=== PATIENT | female | born 1985 | race African-American/Black ===

== ENCOUNTER 2024-07-26 23:31 | Inpatient (IN) | payer BC, SELFPAY ==
[2024-07-27] MEDS ORDERED: Acetaminophen 650 MG Suppository PR PRN (00:40)
[2024-07-27] MEDS ORDERED: Ondansetron PF 4 MG/2 ML Vial IVP PRN (00:40)
[2024-07-27] MEDS ORDERED: Ondansetron ODT 4 MG TAB PO PRN (00:40)
[2024-07-27] MEDS ORDERED: Calcium Carbonate 500 MG ChewTAB PO PRN (00:40)
[2024-07-27] MEDS ORDERED: Albuterol 200 PUFF INH INH PRN (00:42)
[2024-07-27] MEDS ORDERED: Lorazepam 1 MG TAB PO PRN (00:44)
[2024-07-27] MEDS ORDERED: Nicotine 14 MG PATCH TD PRN (00:50)
[2024-07-27] MEDS: Acetaminophen 325 MG TAB PO PRN (01:27)
[2024-07-27 01:39] VITALS: BMI 54.0
[2024-07-27] MEDS: Ipratropium/Albuterol 3 ML NEB NEB SCH (01:40)
[2024-07-27] MEDS: Levothyroxine Sodium 100 MCG TAB PO SCH (05:31)
[2024-07-27 06:22] LABS: Anion Gap 14 mmol/L (10-20); BUN (Urea Nitrogen) 12 mg/dL (7.0-18.7); Calc. Creatinine Clearance 194 mL/min (70-130); Calcium 8.9 mg/dL (7.8-10.44); Carbon Dioxide 21 mmol/L (22-29); Chloride 107 mmol/L (98-107); Estimated GFR 86; Glucose 183 mg/dL (70-105); Potassium 4.5 mmol/L (3.5-5.1); Sodium 137 mmol/L (136-145)
[2024-07-27 06:24] LABS: #Basophils Less than 0.03 10x3/uL (0.0-0.2); #Eosinophils Less than 0.03 10x3/uL (0.0-0.7); %Lymphocytes 7.3 % (21.0-51.0); %Monocytes 5.3 % (0.0-10.0); %Neutrophils 86.8 % (42.0-75.0); Hemoglobin 11.4 g/dL (12.0-16.0); Mean Corpuscular Hemoglobin 22.3 pg (27.0-31.0); Mean Corpuscular Volume 74.4 fL (78.0-98.0); Mean Platelet Volume 10.9 fL (7.4-10.4); Platelet Count 243 10x3/uL (130-400); RBC Distribution Width 17.3 % (11.5-14.5); Red Blood Cell (RBC) Count 5.11 mill/uL (4.20-5.40)
[2024-07-27] MEDS: Mometasone 100 MCG HFA INHALER (RT USE) INH SCH (07:33)
[2024-07-27] MEDS: FLU (Fluarix Triv) TS24-25(6MOS UP)/PF 45 MCG/0.5 ML Syringe IM ONE (09:33)
[2024-07-27] MEDS: Oseltamivir 75 MG CAP PO SCH (09:43)
[2024-07-27] MEDS: Amlodipine 10 MG TAB PO SCH (09:43)
[2024-07-27] MEDS: Metoprolol Succinate XL 100 MG ER.TAB PO SCH (09:43)
[2024-07-27] MEDS: metFORMIN 500 MG TAB PO SCH (09:43)
[2024-07-27] MEDS: Morphine 2 MG/ML VIAL SLOW IVP PRN (12:52)
[2024-07-27] MEDS: Montelukast Sodium 10 mg Tablet PO SCH (21:47)
[2024-07-28 11:41] VITALS: BP 111/55; TEMP 98.4
== END 2024-07-28 12:26 | disposition home or self-care (01) | DRG 202 ==
LOC: OBS 23:41 → INTOOBSV 23:41 → OBSVTOIN 07-27 13:24
PROVIDERS: ADMIT Family Medicine; ATTEND Internal Medicine
DX: J45.31 Mild persistent asthma with (acute) exacerbation (principal); Z68.43 Body mass index [BMI] 50.0-59.9, adult; J10.1 Influenza due to other identified influenza virus with other respiratory manifestations; F17.210 Nicotine dependence, cigarettes, uncomplicated; E03.9 Hypothyroidism, unspecified; G47.33 Obstructive sleep apnea (adult) (pediatric); I10 Essential (primary) hypertension; E11.9 Type 2 diabetes mellitus without complications; E66.01 Morbid (severe) obesity due to excess calories; Z79.890 Hormone replacement therapy
CPT/HCPCS: 36415; 80048; 85025; 94640; 96374; G0378; J2272; J7620